=== PATIENT | female | born 1990 | race American Indian/Alaskan Native ===

== ENCOUNTER 2020-03-24 07:02 | Emergency (ER) | payer SELFPAY ==
[2020-03-24] MEDS ORDERED: KETAMINE 500 MG/5 ML VIAL MDV ONE ×2 (07:19→07:21)
[2020-03-24] MEDS ORDERED: ETOMIDATE 20 MG/10 ML INJ IV ONE (07:21)
[2020-03-24] MEDS ORDERED: SODIUM CHLORIDE 0.9% 500 ML 500 ML IV ONE (07:44)
[2020-03-24] MEDS ORDERED: SODIUM CHLORIDE 0.9% 1000 ML 2,000 ML ONE (07:47)
[2020-03-24 08:06] VITALS: BP 70/54
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
[2020-03-24 08:54] LABS: BUN/Creatinine Ratio 7; Blood Urea Nitrogen 8 mg/dL (7-17); Calcium 9.5 mg/dL (8.4-10.2); Hemolysis Index 52
[2020-03-24 09:05] LABS: Hematocrit 35.4 % (30.3-42.9); Hemoglobin 11.2 gm/dl (10.1-14.3); Mean Corpuscular HGB Conc 32 % (30-34); Mean Corpuscular Volume 96 fl (79-97); Platelet Count 233 K/mm3 (140-440); Red Blood Count 3.68 M/mm3 (3.65-5.03); Red Cell Distribution Width 14.5 % (13.2-15.2)
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
[2020-03-24] MEDS ORDERED: EPINEPHrine 1 MG/10 ML SYRINGE ONE (14:52)
== END 2020-03-24 08:22 | disposition other institution (70) ==
LOC: ED 07:02
DX: S31.139A Puncture wound of abdominal wall without foreign body, unspecified quadrant without penetration into peritoneal cavity, initial encounter (principal); T14.8XXA Other injury of unspecified body region, initial encounter; X58.XXXA Exposure to other specified factors, initial encounter; Y93.89 Activity, other specified; Y92.89 Other specified places as the place of occurrence of the external cause; Y99.8 Other external cause status
CPT/HCPCS: 31500; 36415; 36430; 71045; 74019; 80048; 85025; 86850; 86900; 86901; 86920; 92950; 99291; 99292; J0171; J7030; P9016